=== PATIENT | male | born 1995 | race Caucasian/White ===

== ENCOUNTER 2017-06-01 18:55 | Emergency (ER) | payer OTHER ==
[2017-06-01 21:32] VITALS: BP 121/57
[2017-06-01 21:42] LABS: Basophils % (Auto) 0.4 % (0.0-1.8); Eosinophils % (Auto) 0.8 % (0.0-4.3); Hematocrit 52.4 % (35.5-45.6); Hemoglobin 17.8 gm/dl (11.8-15.2); Mean Corpuscular HGB Conc 34 % (32-34); Mean Corpuscular Hemoglobin 31 pg (28-32); Mean Corpuscular Volume 91 fl (84-94); Platelet Count 253 K/mm3 (140-440); Red Blood Count 5.75 M/mm3 (3.65-5.03); Red Cell Distribution Width 13.4 % (13.2-15.2); White Blood Count 10.5 K/mm3 (4.5-11.0)
[2017-06-01 21:57] LABS: Anion Gap 21 mmol/L; BUN/Creatinine Ratio 7; Blood Urea Nitrogen 5 mg/dL (9-20); Calcium 8.9 mg/dL (8.4-10.2); Carbon Dioxide 24 mmol/L (22-30); Chloride 100.6 mmol/L (98-107); Glucose 111 mg/dL (75-100); Potassium 3.9 mmol/L (3.6-5.0); Sodium 142 mmol/L (137-145)
--- NOTE | 2017-06-01 22:23 | Emergency Department Report ---
HPI - General Chief Complaint: Psych Time Seen by Provider: 06/01/17 21:42 - HPI HPI: [facility] The patient is a 22-year-old male presenting with a chief complaint of anger. The patient was brought in by police under 1013 after destroying things in the room of his home. The patient states he had a good day today however could not find his consultant electronics he was upset about not finding a job. The patient states she is not certain what "set" him off but he began destroying things in his room and throwing things. Patient denies suicidal or homicidal ideation. Patient denies auditory or visual hallucinations. The patient states he now feels calm and remorseful about his behavior. Location: Mental state Duration: [See above] Quality: Anger Severity: Moderate Modifying factors: [see above] Context: [see above] Mode of transportation: [not driving] ED Past Medical Hx - Past Medical History Previous Medical History?: Yes Hx Psychiatric Treatment: Yes (ADHD) Hx Asthma: Yes - Surgical History Past Surgical History?: No - Family History Family history: no significant - Social History Smoking Status: Current Every Day Smoker (1/3 pack per day) Substance Use Type: Alcohol (occasional), Marijuana - Medications Home Medications: Home Medications Medication Instructions Recorded Confirmed Last Taken Type Albuterol Sulfate [Ventolin HFA] 2 puff IH Q4H PRN 06/01/17 06/01/17 Unknown History ED Review of Systems ROS: Stated complaint: EVALUATION Other details as noted in HPI Comment: All other systems reviewed and negative Constitutional: denies: chills, fever Eyes: denies: eye pain, eye discharge, vision change ENT: denies: ear pain, throat pain Respiratory: denies: cough, shortness of breath, wheezing Cardiovascular: denies: chest pain, palpitations Endocrine: no symptoms reported Gastrointestinal: denies: abdominal pain, nausea, diarrhea Genitourinary: denies: urgency, dysuria Musculoskeletal: denies: back pain, joint swelling, arthralgia Skin: denies: rash, lesions Neurological: denies: headache, weakness, paresthesias Psychiatric: denies: anxiety, depression, auditory hallucinations, visual hallucinations, homicidal thoughts, suicidal thoughts Hematological/Lymphatic: denies: easy bleeding, easy bruising Physical Exam - Physical Exam Vital Signs: Vital Signs 06/01/17 21:20 Temperature 97.5 F L Pulse Rate 98 H Respiratory 20 Rate Blood Pressure 121/57 [Left] O2 Sat by Pulse 98 Oximetry Physical Exam: GENERAL: The patient is well-developed well-nourished male sitting in chair not appear to be in acute distress. [] HEENT: Normocephalic. Atraumatic. Extraocular motions are intact. Patient has moist mucous membranes. NECK: Supple. Trachea midline CHEST/LUNGS: Clear to auscultation. There is no respiratory distress noted. HEART/CARDIOVASCULAR: Regular. There is no tachycardia. There is no gallop rub or murmur. ABDOMEN: Abdomen is soft, nontender. Patient has normal bowel sounds. There is no abdominal distention. SKIN: There is no rash. There is no edema. There is no diaphoresis. NEURO: The patient is awake, alert, and oriented. The patient is cooperative. The patient has no focal neurologic deficits. The patient has normal speech. Cranial nerves II through XII grossly intact, no drift MUSCULOSKELETAL: There is no evidence of acute injury. ED Course Vital Signs 06/01/17 21:20 Temperature 97.5 F L Pulse Rate 98 H Respiratory 20 Rate Blood Pressure 121/57 [Left] O2 Sat by Pulse 98 Oximetry - Consultations Consultation #1: 06/01/17 22:33 Case discussed with Mental health revenue cycle consultant-patient does not meet inpatient criteria and may be discharged home ED Medical Decision Making - Lab Data Result diagrams: 06/01/17 21:28 06/01/17 21:28 Laboratory Tests 06/01/17 06/01/17 06/01/17 21:28 21:28 21:28 WBC 10.5 RBC 5.75 H Hgb 17.8 H Hct 52.4 H MCV 91 MCH 31 MCHC 34 RDW 13.4 Plt Count 253 Lymph % (Auto) 13.4 Rabun % (Auto) 7.4 H Eos % (Auto) 0.8 Baso % (Auto) 0.4 Lymph # 1.4 Rabun # 0.8 Eos # 0.1 Baso # 0.0 Seg Neutrophils % 78.0 H Seg Neutrophils # 8.2 H Sodium 142 Potassium 3.9 Chloride 100.6 Carbon Dioxide 24 Anion Gap 21 BUN 5 L Creatinine 0.7 L Estimated GFR > 60 BUN/Creatinine Ratio 7 Glucose 111 H Calcium 8.9 Plasma/Serum Alcohol < 0.01 - Differential Diagnosis anger Critical care attestation.: If time is entered above; I have spent that time in minutes in the direct care of this critically ill patient, excluding procedure time. ED Disposition Clinical Impression: Anger Disposition: DC-01 TO HOME OR SELFCARE Is pt being admited?: No Does the pt Need Aspirin: No Condition: Stable Additional Instructions: Return to the emergency department immediately should you develop worsening symptoms, fever, inability to tolerate food or liquid or any other concerns. Referrals: [facility] [Outside] - 3-5 Days Time of Disposition: 22:33
== END 2017-06-01 23:05 | disposition home or self-care (01) ==
LOC: ED 18:55
DX: R45.4 Irritability and anger (principal); F90.9 Attention-deficit hyperactivity disorder, unspecified type; J45.909 Unspecified asthma, uncomplicated; F17.200 Nicotine dependence, unspecified, uncomplicated; F12.10 Cannabis abuse, uncomplicated
CPT/HCPCS: 36415; 80048; 85025; 99284; G0480; 80320